=== PATIENT | female | born 1945 | race Two or more races ===

== ENCOUNTER 2018-03-07 10:45 | Inpatient (IN) ==
[2018-03-07] MEDS ORDERED: Metoprolol Tartrate 25 MG Tablet PO ONE (11:30)
[2018-03-07] MEDS ORDERED: Chlorhexidine Gluconate 2% 1 Pack (2 Cloths) TOPICAL ONE (11:30)
[2018-03-07] MEDS ORDERED: Sodium Chlor 0.9% Inj 500 ML IV.CONT ONE ×2 (11:30→12:45)
[2018-03-07] MEDS ORDERED: Sodium Chloride 0.9% 2 ML Flush PRN IV.FLUSH (11:32)
[2018-03-07] MEDS ORDERED: ceFAZolin 2 GM IV; once IV.SIG ONE (12:00)
[2018-03-07 12:03] LABS: Prothrombin Time 10.3 sec (9.8-11.6)
[2018-03-07] MEDS ORDERED: Ketamine Inj 50 MG/5 ML Syringe IV.PUSH ONE (12:08)
[2018-03-07] MEDS ORDERED: Albumin Human 5% Inj 500 ML IV.SIG ONE (12:10)
[2018-03-07] MEDS ORDERED: Famotidine PF Inj 20 MG/2 ML Vial ONE (12:30)
[2018-03-07] MEDS ORDERED: hydrALAZINE HCl Inj 20 MG/ML Vial IV.PUSH ONE (12:45)
[2018-03-07] MEDS ORDERED: Neostigmine Inj 5 MG/5 ML Syringe IV.PUSH ONE (12:45)
[2018-03-07] MEDS ORDERED: Lidocaine PF 1% Inj 5 ML Syringe OTHER ONE (12:45)
[2018-03-07] MEDS ORDERED: Glycopyrrolate Inj 1 MG/5 ML Syringe IV.PUSH ONE (12:45)
[2018-03-07] MEDS ORDERED: Esmolol Bolus Inj 100 MG/10 ML Vial IV.PUSH ONE (12:45)
[2018-03-07] MEDS ORDERED: Morphine Inj 4 MG/ML Vial IV.PUSH PRN (15:51)
[2018-03-07] MEDS ORDERED: Sodium Chlor 0.9% Inj 1,000 ML IV.SIG SCH (16:00)
[2018-03-07] MEDS ORDERED: Sugammadex Inj 200 MG/2 ML Vial IV.PUSH ONE (16:29)
[2018-03-07] MEDS ORDERED: fentaNYL Citrate Inj 100 MCG/2 ML Ampul ONE ×2 (17:00→17:01)
--- NOTE | 2018-03-07 17:14 | XR ---
EXAM DATE: 03/07/2018 12:00 AM EDT AGE/SEX: 72 years / Female INDICATIONS: Right central line placement. CLINICAL DATA: This is the patient's initial encounter. Patient reports that signs and symptoms have been present for 1 day and indicates a pain score of Nonresponsive. MEDICAL/SURGICAL HISTORY: None. None. COMPARISON: No prior exams available for comparison. FINDINGS: A right jugular line is noted in the distal tip overlies expected location of the SVC. I do not see a pneumothorax, however there is extensive subcutaneous air overlying the left chest nec k. Mild cardiomegaly. CONCLUSION: Right jugular line as above. Extensive subcutaneous air. Electronically signed by: Wallace Schmidt MD 03/07/2018 5:13 PM EDT
[2018-03-07] MEDS ORDERED: Sodium Chlor 0.9% Inj 250 ML IV.SIG ONE (17:15)
[2018-03-07 17:34] LABS: Calcium 7.8 mg/dL (8.5-10.1); Potassium 3.6 meq/L (3.5-5.1)
[2018-03-07 17:41] LABS: Baso % (Auto) 0.4 % (0.0-2.0); Eos % (Auto) 0.1 % (0.0-4.0); Hematocrit 36.2 % (35.0-46.0); Hemoglobin 11.7 gm/dL (11.6-15.3); Lymph # (Auto) 0.8 th/mm3 (1.0-4.8); Lymph % (Auto) 7.8 % (9.0-44.0); Mean Corpuscular HGB Conc 32.3 % (32.0-36.0); Mean Corpuscular Hemoglobin 28.2 pg (27.0-34.0); Mean Corpuscular Volume 87.2 fL (80.0-100.0); Mean Platelet Volume 8.2 fL (7.0-11.0); Mono # (Auto) 0.2 th/mm3 (0.0-0.9); Mono % (Auto) 2.5 % (0.0-8.0); Neut # (Auto) 8.7 th/mm3 (1.8-7.7); Neut % (Auto) 89.2 % (16.0-70.0); Platelet Count 231 th/mm3 (150-450); Red Blood Count 4.15 mil/mm3 (4.00-5.30); Red Cell Distribution Width 15.2 % (11.6-17.2); White Blood Count 9.8 th/mm3 (4.0-11.0)
--- NOTE | 2018-03-07 17:41 | MP ---
cc: Wolfgang Bauer MD DATE OF OPERATION: 03/07/2018 PREOPERATIVE DIAGNOSES: 1. A 4 cm enlarging lower pole left renal mass. 2. Diabetes. 3. Hypertension. POSTOPERATIVE DIAGNOSES: 1. A 4 cm enlarging lower pole left renal mass. 2. Diabetes. 3. Hypertension. PROCEDURE PERFORMED: Robotic-assisted laparoscopic left radical nephrectomy with intraoperative ultrasound. SURGEON: Wolfgang Bauer MD ANESTHESIA: General. COMPLICATIONS: None. PREOPERATIVE ANTIBIOTICS: Ancef 1 g IV. DRAINS: Khalil catheter. SPECIMENS: Left kidney. ESTIMATED BLOOD LOSS: 200 mL. FLUIDS: 1700 mL crystalloids per Anesthesia. COMPLICATIONS: None. DISPOSITION: Stable to recovery. INDICATIONS: The patient is a 72-year-old female who had a known lower pole left renal mass for the last several years. However, over last couple of years, it has doubled in size. She also had issues with urination in which she has milky colored urine that was very thick. She is under the care of a rod welder who is recommending a biopsy of her kidney. However, due to the finding of this enlarging renal mass, she was set up for surgical removal of the mass and possible removal of the kidney due to location of the mass. After risks, benefits, and alternatives were explained to the patient, the patient elected to proceed. Informed consent was obtained. DETAILS OF PROCEDURE: The patient was properly identified and brought back to the operating room and laid supine on the operating table. Appropriate timeout was performed. Under the direction of Anesthesiology, the patient was intubated and induced under general anesthetic. Appropriate preoperative antibiotics were given within one hour of start of procedure. A Khalil catheter was placed under sterile technique. She was then placed in right lateral decubitus position with left side up. All pressure points were padded. She was then prepped and draped in a sterile surgical fashion. A stab incision was made superior and lateral to the umbilicus. A Veress needle was then used to gain access to the abdominal cavity. Pneumoperitoneum was then achieved. I extended the incision approximately 2 cm, and a long camera was then placed under direct vision into the abdominal cavity. There was no intra-abdominal injury. At this time 4 remaining ports were then placed, under direct visualization, including two 8 mm robotic ports that were triangulated off of the camera port and then two 12 mm bilingual teacher assistant port in the midline superior and inferior to the umbilicus. Once all ports were placed, the robot was then brought into position. We began by taking down the white line of Toldt and reflecting the colon medially which exposed the retroperitoneum. Carefully with blunt dissection, I was able to dissect the kidney off of the colonic mesentery. At this time, I then easily found the gonadal vein and ureter. I developed a plane between the gonadal vein and ureter and the psoas muscle and retracted the kidney anteriorly. I carefully marched cranially up the psoas muscle, following the gonadal vein insertion into the left renal vein. Due to exposure purposes, I then needed to take the gonadal vein with the robotic vessel sealer. The patient also had a small lumbar vein posterior to the renal vein. This was carefully dissected out and taken with a robotic sealer as well. Both the artery and vein were carefully dissected out separately and circumferentially. At this point, I then turned my attention to finding the tumor in the anterior portion of the left kidney. The perirenal fat was then carefully dissected off. This exposed the exophytic tumor. As I came around the inferior portion of the tumor, it appeared to be continuous with the ureter. There did not seem to see a viable plane, which could explain her urinary issues. Ultrasound was then brought into the field. Intraoperative ultrasound was done, which showed the mass appeared to be solid in nature, consistent with MRI findings and a possible renal cell carcinoma. The ultrasound was then removed. Superiorly and laterally we had a clear margin; however, medially and especially inferiorly that there was not a clear cut margin, especially with what appeared to be the ureter going through the tumor. At this point, we made the decision to perform a radical nephrectomy. In mobilizing the kidney did appear to puncture this renal mass and this proteinaceous, almost sebaceous, material was expressed, possible cystic renal cell carcinoma versus a hemorrhagic proteinaceous cyst that was in connection with her collecting system. At this point, I continued with the dissection, I was able to divide and ligate the renal artery with endovascular STEVAN stapler, followed by the vein. This appeared to free up the kidney as I was taking the upper pole attachments, I came across a separate vein and artery. These were small enough to be taken with the vessel sealer. The rest of the kidney was mobilized, the ureter was then divided inferiorly with the robotic vessel sealer. At this point, the entire kidney was freed. It was then placed in an EndoCatch bag for later removal. The renal fossa was then carefully inspected. It was irrigated out. No active bleeding was seen. The abdominal pressure was brought down to 7 mmHg. Again, hemostasis was excellent, and 5 mL of Evicel was then used for hemostatic purposes along the renal fossa and hilum. At this point, the kidney was extracted through a left lower quadrant incision. It was closed in 1 layer with a running 1-0 PDS. A second look was then performed. The underside of the incision was free of any bowel. There was no evidence of any pooling of blood in the renal fossa. All ports were removed under direct visualization. Incisions were closed with 4-0 Monocryl and reinforced with Dermabond. Sponge, instrument and needle counts were correct at the end of the case. This concluded the operation. She was extubated and sent to recovery room in stable condition. She will be transferred for routine postoperative care. We will have medicine help with her postoperative management. MD RACHID Casey/wendi , 04:03 PM , 04:18 PM
[2018-03-07] MEDS ORDERED: *morphine SULFATE 4 MG/ML PERIprocedure ONLY ONE (17:48)
[2018-03-07] MEDS: Pantoprazole Inj 40 MG Vial IV.PUSH SCH (18:33)
[2018-03-07] MEDS: Sodium Chloride 0.9% 2 ML Flush BID IV.FLUSH SCH (21:51)
[2018-03-07] MEDS: Docusate Sodium 100 MG Capsule PO SCH (21:51)
[2018-03-07] MEDS: Isosorbide Mononitrate 30 MG ER 24HR Tablet (Imdur) PO SCH (21:53)
[2018-03-08] MEDS: Levothyroxine 50 MCG Tablet PO SCH (05:01)
[2018-03-08 08:04] LABS: Hematocrit 33.6 % (35.0-46.0); Mean Corpuscular HGB Conc 32.8 % (32.0-36.0); Mean Corpuscular Hemoglobin 28.4 pg (27.0-34.0); Mean Corpuscular Volume 86.7 fL (80.0-100.0); Mean Platelet Volume 8.4 fL (7.0-11.0); Platelet Count 221 th/mm3 (150-450); Red Blood Count 3.88 mil/mm3 (4.00-5.30); Red Cell Distribution Width 14.8 % (11.6-17.2); White Blood Count 10.5 th/mm3 (4.0-11.0)
[2018-03-08 08:44] LABS: Calcium 7.6 mg/dL (8.5-10.1); Carbon Dioxide 26.2 meq/L (21.0-32.0); Potassium 4.3 meq/L (3.5-5.1)
[2018-03-08] MEDS: dilTIAZem CD 180 MG Capsule PO SCH (09:11)
[2018-03-08] MEDS: Docusate Sodium 100 MG Capsule PO SCH ×2 (09:12→20:50)
[2018-03-08] MEDS: Sodium Chloride 0.9% 2 ML Flush BID IV.FLUSH SCH ×2 (09:13→20:50)
--- NOTE | 2018-03-08 09:54 | P.CON ---
History of Present Illness Service: [facility]/HEP Consult date: 03/07/18 Requesting Physician: Wolfgang Bauer Reason for Consult: Medical multiple status post left robotic radical nephrectomy Primary Care Provider: No Primary Care Physician Family Provider: No Primary Care Physician Chief Complaint: "Growth in my kidney" History of Present Illness: 72-year-old female with past medical history significant for hypertension, hyperlipidemia,, GERD, and renal mass who was admitted to the hospital on 03/07 by . Patient reports that about a year ago she had a spot on the left kidney diagnosed in [place] where she was initially told was a stone. Patient followed this with her PCP and after developing symptoms of note: Urine was referred to a urologist and ostomy nurse for further evaluation. Patient reports that initially biopsies were recommended however she refused these as he was mentioned of possible removal of mass. She was admitted to the hospital for removal of renal mass with possible removal of left kidney due to size and location. [facility] consulted to assist with medical management during her hospitalization. Patient is seen and examined resting in bed comfortably appears to be in no acute distress. Denies any shortness of breath, cough, fevers, chills, nausea, vomiting, abdominal pain or discomfort. Khalil catheter was removed earlier today, patient has not yet voided. Patient denies any pain or discomfort at the moment. Would like to know results of biopsies. Discussed with patient that these may take several days to result. Review of Systems All other systems reviewed negative except as stated in HPI PMFSH - History History Provided By: Patient - Medical History Medical History: Medical History (Last Reviewed 03/08/18 @ 09:52 by Brad Garrett) COPD (chronic obstructive pulmonary disease) Diabetes GERD (gastroesophageal reflux disease) High cholesterol Hypertension Renal mass, left Thyroid disease - Surgical History Surgical History: Surgical History (Last Reviewed 03/08/18 @ 09:52 by Brad Garrett) H/O left breast biopsy Hx of cholecystectomy - Family History Family History: Family History (Last Updated 03/08/18 @ 09:53 by Brad Garrett) Father Breast CA Mother Stroke Sister Colon cancer - Tobacco History Second Hand Smoke Exposure: No Tobacco Use In Past 30 Days: No Smoking Status: Former smoker Tobacco Type: Cigarettes Years Smoked: 30 Smoking End Date: 9 years ago - Alcohol History How Often Do You Have a Drink Containing Alcohol: Never - Substance Use History Substance History: No History of Abuse - Travel History Recent Travel in the [place] Within the Last 8 Weeks: No Recent Travel Out of the Country Within the Last 8 Weeks: No Medications and Allergies Active Medications: Active Medications Atorvastatin Calcium (Lipitor) 20 mg PO [facility] Last Admin: 03/07/18 21:51 Dose: 20 mg Diltiazem HCl (Cardizem Cd 24hr) 180 mg PO DAILY [facility] Last Admin: 03/08/18 09:11 Dose: 180 mg Docusate Sodium (Colace) 100 mg PO BID [facility] Last Admin: 03/08/18 09:12 Dose: 100 mg Fluticasone Propionate (Flovent Hfa 110 Mcg Inh) 2 puff INH BID [facility] Last Admin: 03/08/18 09:13 Dose: Not Given Lactated Ringer's (Lr 1000 Ml Inj) 1,000 mls @ 30 mls/hr IV.CONT .Q24H ONE Stop: 03/08/18 11:29 Last Infusion: 03/07/18 15:51 Dose: Infused Sodium Chloride (Ns Inj) 1,000 mls @ 125 mls/hr IV.SIG .Q10H [facility] Last Infusion: 03/07/18 18:00 Dose: 125 mls/hr Isosorbide Mononitrate (Imdur) 30 mg PO [facility] Last Admin: 03/07/18 21:53 Dose: 30 mg Levothyroxine Sodium (Synthroid) 50 mcg PO DAILY@0600 [facility] Last Admin: 03/08/18 05:01 Dose: 50 mcg Losartan Potassium (Cozaar) 100 mg PO DAILY [facility] Last Admin: 03/08/18 09:11 Dose: 100 mg Metformin HCl (Glucophage) 500 mg PO BID [facility] Last Admin: 03/08/18 09:11 Dose: 500 mg Miscellaneous Information ([facility]) 1 each OTHER UNSCH PRN PRN Reason: SEE LABEL COMMENTS Stop: 03/08/18 16:37 Morphine Sulfate (Morphine Inj) 4 mg IV.PUSH Q4H PRN PRN Reason: BREAKTHROUGH PAIN Ondansetron HCl (Zofran Inj) 4 mg IV.PUSH Q6H PRN PRN Reason: NAUSEA OR VOMITING Oxycodone/Acetaminophen (Percocet 5/325 Mg) 2 tab PO Q4H PRN PRN Reason: PAIN SCALE 6 TO 10 Oxycodone/Acetaminophen (Percocet 5/325 Mg) 1 tab PO Q4H PRN PRN Reason: PAIN SCALE 3 TO 5 Pantoprazole Sodium (Protonix Inj) 40 mg IV.PUSH Q24H [facility] Last Admin: 03/07/18 18:33 Dose: 40 mg Sodium Chloride (Ns Flush) 2 ml IV.FLUSH BID [facility] Last Admin: 03/08/18 09:13 Dose: 2 ml Sodium Chloride (Ns Flush) 2 ml IV.FLUSH PRN PRN PRN Reason: FLUSH AFTER USING IV ACCESS Allergies Allergy/AdvReac Type Severity Reaction Status Date / Time No Known Allergies Allergy Verified 03/07/18 11:30 Home Medications Medication Instructions Recorded Confirmed Type atorvastatin 20 mg PO HS 03/06/18 03/07/18 History diltiazem HCl 180 mg PO DAILY 03/06/18 03/07/18 History fluticasone [Flovent HFA] 2 puff INHALATION BID 03/06/18 03/07/18 History isosorbide mononitrate 30 mg PO HS 03/06/18 03/07/18 History levothyroxine 50 mcg PO DAILY 03/06/18 03/07/18 History losartan 100 mg PO DAILY 03/06/18 03/07/18 History metformin 500 mg PO BID 03/06/18 03/07/18 History ranitidine HCl [Zantac Maximum 150 mg PO DAILY PRN 03/06/18 03/07/18 History Strength] Physical Exam Vital signs: Vital Signs 03/07/18 11:33 03/07/18 16:37 03/07/18 16:45 Temperature 97.8 F 97.5 F L Pulse Rate 88 78 74 Respiratory Rate 20 12 14 Blood Pressure 125/66 104/49 L 100/47 L Pulse Oximetry 96 100 100 03/07/18 17:00 03/07/18 17:15 03/07/18 17:30 Temperature Pulse Rate 73 72 70 Respiratory Rate 14 14 14 Blood Pressure 96/55 L 94/43 L 104/53 L Pulse Oximetry 96 98 94 L 03/07/18 17:45 03/07/18 18:00 03/07/18 20:00 Temperature 97 F L 97.2 F L Pulse Rate 73 68 72 Respiratory Rate 14 14 18 Blood Pressure 115/56 L 112/57 L 140/63 Pulse Oximetry 98 96 97 03/08/18 00:00 03/08/18 08:00 Temperature 97.0 F L 97.2 F L Pulse Rate 81 70 Respiratory Rate 18 17 Blood Pressure 130/56 L 115/54 L Pulse Oximetry 98 100 Intake & Output 03/07/18 03/08/18 03/08/18 18:59 06:59 18:59 Intake Total 2112 / 2112 100 / 100 100 / 100 Output Total 1100 / 1100 1500 / 1500 Balance 1012 / 1012 -1400 / -1400 100 / 100 Weight 75.9 kg 80 kg Intake: IV 1412 / 1412 100 / 100 100 / 100 LR 1000 mL Inj 1,000 ML @ 30 1000 / 1000 mls/hr IV.CONT .Q24H [facility] Rx#: [id number] NS Inj 250 ML @ 999 mls/hr IV. 250 / 250 SIG NOW [facility] Rx#:[id number] NS Inj 1,000 ML @ 125 mls/hr IV 112 / 112 .SIG .Q10H [facility] Rx#:[id number] Ancef 2 GM Premix Inj 2 gm In 50 / 50 50 ml @ 100 mls/hr IV.SIG ONCE [facility] Rx#:[id number] Ancef Inj 1,000 MG In NS Inj 100 / 100 100 / 100 100 ML @ 200 mls/hr IV.SIG Q8H [facility] Rx#:[id number] Oral 0 / 0 Anesthesia Amount 700 / 700 Output: Urine 1500 / 1500 Estimated Blood Loss 200 / 200 Urine Amount (Catheter) 900 / 900 Indwelling Urethral Catheter 900 / 900 Other: Weight On Admission 75.9 kg Narrative: GENERAL: Well-developed obese female resting in bed in no acute distress. SKIN: Warm and dry. HEAD: Atraumatic. Normocephalic. EYES: Pupils equal and round. No scleral icterus. No injection or drainage. ENT: No nasal bleeding or discharge. Mucous membranes pink and moist. NECK: Trachea midline. No JVD. Right jugular triple-lumen central line noted with dry and intact dressing. CARDIOVASCULAR: Regular rate and rhythm. RESPIRATORY: No accessory muscle use. Clear to auscultation. Breath sounds equal bilaterally. GASTROINTESTINAL: Abdomen soft, non-tender, nondistended. Positive bowel sounds. Left lower quadrant dressing with minimal amount of serous drainage noted. MUSCULOSKELETAL: Extremities without clubbing, cyanosis, or edema. No obvious deformities. NEUROLOGICAL: Awake and alert. No obvious cranial nerve deficits. Motor grossly within normal limits. Five out of 5 muscle strength in the arms and legs. Normal speech. PSYCHIATRIC: Appropriate mood and affect; insight and judgment normal. - Urinary Catheter Management Indwelling Urethral Catheter Cath placed during this visit: yes Reason for continuing: Hourly intake/output Insertion date: 03/07/18 Insertion time: 12:45 Assessment and Plan - Assessment (1) Left renal mass Code(s): N28.89 - Other specified disorders of kidney and ureter Status: Acute (2) HTN (hypertension) Code(s): I10 - Essential (primary) hypertension Status: Acute (3) Diabetes mellitus Code(s): E11.9 - Type 2 diabetes mellitus without complications Status: Acute - Plan 72-year-old female with past medical history significant for hypertension, hyperlipidemia, GERD, COPD and renal mass who was admitted to the hospital on by for removal of renal mass with possible left nephrectomy. [facility] consulted for medical management during her stay. Left renal mass - s/p Robotic-assisted laparoscopic left radical nephrectomy with intraoperative ultrasound by 03/07 -Khalil catheter discontinued early today, monitor urinary output -Pain control with oral Percocet and IV morphine for breakthrough pain -Vital signs stable, afebrile, H&H with slight drop 11.1/33.6 -Follow-up pathology report with surgeon or PCP Hypertension Hyperlipidemia -Continue Cardizem, Imdur, Cozaar, Lipitor -Monitor heart rate and blood pressure during stay, stable so far. Diabetes mellitus -Continue home dose of metformin -Currently on liquid diet advance as tolerated to diabetic - Random BS stable, if needed ISS DVT prophylaxis- [facility] [place] Thank you for this consultation, will continue to follow along with you. 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 (2) HTN (hypertension) Qualifiers: Hypertension type: essential hypertension Qualified Code(s): I10 - Essential (primary) hypertension
--- NOTE | 2018-03-08 12:29 | P.PNURO ---
Subjective Patient symptoms today: doing well. denies pain. tolerating clears. No flatus. Denies CP/SOB/N/V/F. Has been OOB. Khalil removed this morning. Objective Vital Signs: Vital Signs 03/07/18 16:37 03/07/18 16:45 03/07/18 17:00 Temperature 97.5 F L Pulse Rate 78 74 73 Respiratory Rate 12 14 14 Blood Pressure 104/49 L 100/47 L 96/55 L Pulse Oximetry 100 100 96 03/07/18 17:15 03/07/18 17:30 03/07/18 17:45 Temperature Pulse Rate 72 70 73 Respiratory Rate 14 14 14 Blood Pressure 94/43 L 104/53 L 115/56 L Pulse Oximetry 98 94 L 98 03/07/18 18:00 03/07/18 20:00 03/08/18 00:00 Temperature 97 F L 97.2 F L 97.0 F L Pulse Rate 68 72 81 Respiratory Rate 14 18 18 Blood Pressure 112/57 L 140/63 130/56 L Pulse Oximetry 96 97 98 03/08/18 08:00 Temperature 97.2 F L Pulse Rate 70 Respiratory Rate 17 Blood Pressure 115/54 L Pulse Oximetry 100 Intake & Output 03/07/18 03/08/18 03/08/18 18:59 06:59 18:59 Intake Total 2112 / 2112 100 / 100 100 / 100 Output Total 1100 / 1100 1500 / 1500 Balance 1012 / 1012 -1400 / -1400 100 / 100 Weight 75.9 kg 80 kg Intake: IV 1412 / 1412 100 / 100 100 / 100 LR 1000 mL Inj 1,000 ML @ 30 1000 / 1000 mls/hr IV.CONT .Q24H [facility] Rx#: [id number] NS Inj 250 ML @ 999 mls/hr IV. 250 / 250 SIG NOW ONE Rx#:[id number] NS Inj 1,000 ML @ 125 mls/hr IV 112 / 112 .SIG .Q10H [facility] Rx#:[id number] Ancef 2 GM Premix Inj 2 gm In 50 / 50 50 ml @ 100 mls/hr IV.SIG ONCE [facility] Rx#:[id number] Ancef Inj 1,000 MG In NS Inj 100 / 100 100 / 100 100 ML @ 200 mls/hr IV.SIG Q8H [facility] Rx#:[id number] Oral 0 / 0 Anesthesia Amount 700 / 700 Output: Urine 1500 / 1500 Estimated Blood Loss 200 / 200 Urine Amount (Catheter) 900 / 900 Indwelling Urethral Catheter 900 / 900 Other: Weight On Admission 75.9 kg Result Diagrams: 03/08/18 06:00 03/08/18 06:00 Imaging: Impressions Chest X-Ray 03/07/18 00:00 CONCLUSION: Right jugular line as above. Extensive subcutaneous air. Medications and IVs: Active Medications Generic Name Dose Route Start Last Admin Trade Name Freq PRN Reason Stop Dose Admin Atorvastatin Calcium 20 mg 03/07/18 21:00 03/07/18 21:51 Lipitor PO 20 mg HS [facility] Administration Diltiazem HCl 180 mg 03/08/18 09:00 03/08/18 09:11 Cardizem Cd 24hr PO 180 mg DAILY [facility] Administration Docusate Sodium 100 mg 03/07/18 21:00 03/08/18 09:12 Colace PO 100 mg BID [facility] Administration Fluticasone Propionate 2 puff 03/07/18 21:00 03/08/18 09:13 Flovent Hfa 110 Mcg Inh INH Not Given BID [facility] Sodium Chloride 1,000 mls @ 125 mls/hr 03/07/18 16:00 03/07/18 18:00 Ns Inj IV.SIG 125 mls/hr .Q10H [facility] Infusion Isosorbide Mononitrate 30 mg 03/07/18 21:00 03/07/18 21:53 Imdur PO 30 mg HS [facility] Administration Levothyroxine Sodium 50 mcg 03/08/18 06:00 03/08/18 05:01 Synthroid PO 50 mcg DAILY@0600 [facility] Administration Losartan Potassium 100 mg 03/08/18 09:00 03/08/18 09:11 Cozaar PO 100 mg DAILY [facility] Administration Metformin HCl 500 mg 03/07/18 21:00 03/08/18 09:11 Glucophage PO 500 mg BID [facility] Administration Miscellaneous Information 1 each 03/07/18 16:38 Misc Nursing Information OTHER 03/08/18 16:37 UNSCH PRN SEE LABEL COMMENTS Morphine Sulfate 4 mg 03/07/18 15:51 Morphine Inj IV.PUSH Q4H PRN BREAKTHROUGH PAIN Ondansetron HCl 4 mg 03/07/18 15:50 Zofran Inj IV.PUSH Q6H PRN NAUSEA OR VOMITING Oxycodone/Acetaminophen 2 tab 03/07/18 15:50 Percocet 5/325 Mg PO Q4H PRN PAIN SCALE 6 TO 10 Oxycodone/Acetaminophen 1 tab 03/07/18 15:52 Percocet 5/325 Mg PO Q4H PRN PAIN SCALE 3 TO 5 Pantoprazole Sodium 40 mg 03/07/18 17:00 03/07/18 18:33 Protonix Inj IV.PUSH 40 mg Q24H [facility] Administration Sodium Chloride 2 ml 03/07/18 21:00 03/08/18 09:13 Ns Flush IV.FLUSH 2 ml BID [facility] Administration Sodium Chloride 2 ml 03/07/18 11:32 Ns Flush IV.FLUSH PRN PRN FLUSH AFTER USING IV ACCESS Objective Remarks: NAD. A/O x 3 CTAB RRR abd soft, non tender, mild distention. Inc c/d/i. Dressing intact Ext NT. No edema Assessment and Plan - Plan POD #1 s/p Left Robotic Radical Nephrectomy -Doing well. Hemodynamically stable. Good UOP -Creatinine elevated as expected. Repeat BMP in A.M. -Ambulate, IS -GI/DVT prophylaxis -Medical Management per Hospitalist. Appreciate assistance. -Regular diet in A.M. -Possible d/c tomorrow
[2018-03-08] MEDS ORDERED: Sodium Chlor 0.9% Inj 1,000 ML IV.SIG SCH (13:00)
[2018-03-08] MEDS: Pantoprazole Inj 40 MG Vial IV.PUSH SCH (16:13)
[2018-03-08] MEDS: Isosorbide Mononitrate 30 MG ER 24HR Tablet (Imdur) PO SCH (20:49)
[2018-03-09] MEDS: Levothyroxine 50 MCG Tablet PO SCH (05:02)
[2018-03-09 08:08] LABS: Calcium 8.1 mg/dL (8.5-10.1); Carbon Dioxide 26.5 meq/L (21.0-32.0); Potassium 3.9 meq/L (3.5-5.1)
[2018-03-09] MEDS: Docusate Sodium 100 MG Capsule PO SCH (08:49)
[2018-03-09] MEDS: dilTIAZem CD 180 MG Capsule PO SCH (08:52)
--- NOTE | 2018-03-09 10:40 | P.PN ---
Subjective Interval history: Follow-up visit for robotic assisted laparoscopic nephrectomy. Comfortably in no acute distress. He denies any nausea, vomiting, cough, shortness of breath or chest pain. Patient reports that she tolerated her diet this morning. Had a bowel movement this morning and is voiding without any dysuria or hematuria. She reports she is ready to go home today. Denies any abdominal pain or discomfort. Physical Exam Vital signs: Vital Signs 03/08/18 12:00 03/08/18 16:00 03/08/18 19:37 Temperature 97.1 F L 97.3 F L 97.9 F Pulse Rate 64 72 77 Respiratory Rate 18 17 17 Blood Pressure 125/63 129/63 132/62 Pulse Oximetry 99 95 94 L 03/09/18 00:00 03/09/18 08:00 Temperature 97.2 F L 98.2 F Pulse Rate 79 85 Respiratory Rate 17 16 Blood Pressure 137/63 122/57 L Pulse Oximetry 94 L 91 L Intake & Output 03/08/18 03/09/18 03/09/18 18:59 06:59 18:59 Intake Total 3338 / 3338 900 / 900 Output Total 1550 / 1550 Balance 1788 / 1788 900 / 900 Weight 78.1 kg Intake: IV 988 / 988 NS Inj 1,000 ML @ 125 mls/hr IV 888 / 888 .SIG .Q10H [facility] Rx#:[id number] Ancef Inj 1,000 MG In NS Inj 100 / 100 100 ML @ 200 mls/hr IV.SIG Q8H [facility] Rx#:[id number] Oral 1650 / 1650 900 / 900 Anesthesia Amount 700 / 700 Output: Urine 1050 / 1050 Estimated Blood Loss 200 / 200 Urine Amount (Catheter) 300 / 300 Indwelling Urethral Catheter 300 / 300 Other: # Voids 3 Date of Last Bowel Movement 03/08/18 # Bowel Movements 1 Narrative: GENERAL: Well-developed obese female resting in bed in no acute distress. SKIN: Warm and dry. HEAD: Atraumatic. Normocephalic. EYES: Pupils equal and round. No scleral icterus. No injection or drainage. ENT: No nasal bleeding or discharge. Mucous membranes pink and moist. NECK: Trachea midline. Right jugular triple-lumen central line noted with dry and intact dressing. CARDIOVASCULAR: Regular rate and rhythm. RESPIRATORY: No accessory muscle use. Clear to auscultation. Breath sounds equal bilaterally. GASTROINTESTINAL: Abdomen soft, non-tender, nondistended. Positive bowel sounds. Left lower quadrant dressing with minimal amount of serous drainage noted. MUSCULOSKELETAL: Extremities without clubbing, cyanosis, or edema. No obvious deformities. NEUROLOGICAL: Awake and alert. No obvious cranial nerve deficits. Motor grossly within normal limits. Normal speech. PSYCHIATRIC: Appropriate mood and affect; insight and judgment normal. - Urinary Catheter Management Indwelling Urethral Catheter Cath placed during this visit: yes Reason for continuing: Hourly intake/output Insertion date: 03/07/18 Insertion time: 12:45 Results - Labs CBC & Chem 7: 03/08/18 06:00 03/09/18 05:33 Laboratory Results - last 24 hr 03/09/18 05:33 Sodium 147 H Potassium 3.9 Chloride 113 H Carbon Dioxide 26.5 Anion Gap 8 BUN 11 Creatinine 1.31 H Estimated GFR 40 L Random Glucose 84 Calcium 8.1 L Assessment and Plan - Assessment (1) Left renal mass Code(s): N28.89 - Other specified disorders of kidney and ureter Status: Acute (2) HTN (hypertension) Code(s): I10 - Essential (primary) hypertension Status: Acute (3) Diabetes mellitus Code(s): E11.9 - Type 2 diabetes mellitus without complications Status: Acute - Plan 72-year-old female with past medical history significant for hypertension, hyperlipidemia, GERD, COPD and renal mass who was admitted to the hospital on by for removal of renal mass with possible left nephrectomy. [facility] consulted for medical management during her stay. Left renal mass - s/p Robotic-assisted laparoscopic left radical nephrectomy with intraoperative ultrasound by 03/07 -Khalil catheter removed, voiding with no symptoms. -Pain control with oral Percocet and IV morphine for breakthrough pain -Vital signs stable, afebrile, H&H with slight drop 11.1/33.6 -Follow-up pathology report with surgeon or PCP -Creatinine mildly elevated at 1.31 Hypertension Hyperlipidemia -Continue Cardizem, Imdur, Cozaar, Lipitor -Monitor heart rate and blood pressure during stay, stable so far. Diabetes mellitus -Continue home dose of metformin -Currently on liquid diet advance as tolerated to diabetic - Random BS stable, if needed ISS DVT prophylaxis- SDC's Medically stable for discharge. Discussed Condition With: Patient and buttoner Planning: Possible DC today (2) HTN (hypertension) Qualifiers: Hypertension type: essential hypertension Qualified Code(s): I10 - Essential (primary) hypertension
[2018-03-09] MEDS: Sodium Chloride 0.9% 2 ML Flush BID IV.FLUSH SCH (10:43)
[2018-03-09 12:27] VITALS: BP 139/65; PULSE 86; RESP 17; TEMP 97.4; O2SAT 93
--- NOTE | 2018-03-09 13:32 | P.PNURO ---
Subjective Patient symptoms today: Pt was seen at bedside. Doing well. still has some soreness at the abd area. Ambulates with help. Tolerates diet well. Had BM. Voids ok. States that has difficulties to get out of her bed to stand up but states that its due to uncomfortable bed, she has no issues to get up from the chair Objective Vital Signs: Vital Signs 03/08/18 16:00 03/08/18 19:37 03/09/18 00:00 Temperature 97.3 F L 97.9 F 97.2 F L Pulse Rate 72 77 79 Respiratory Rate 17 17 17 Blood Pressure 129/63 132/62 137/63 Pulse Oximetry 95 94 L 94 L 03/09/18 08:00 03/09/18 12:00 Temperature 98.2 F 97.4 F L Pulse Rate 85 86 Respiratory Rate 16 17 Blood Pressure 122/57 L 139/65 Pulse Oximetry 91 L 93 L Intake & Output 03/08/18 03/09/18 03/09/18 18:59 06:59 18:59 Intake Total 3338 / 3338 900 / 900 Output Total 1550 / 1550 Balance 1788 / 1788 900 / 900 Weight 78.1 kg Intake: IV 988 / 988 NS Inj 1,000 ML @ 125 mls/hr IV 888 / 888 .SIG .Q10H [facility] Rx#:[id number] Ancef Inj 1,000 MG In NS Inj 100 / 100 100 ML @ 200 mls/hr IV.SIG Q8H [facility] Rx#:[id number] Oral 1650 / 1650 900 / 900 Anesthesia Amount 700 / 700 Output: Urine 1050 / 1050 Estimated Blood Loss 200 / 200 Urine Amount (Catheter) 300 / 300 Indwelling Urethral Catheter 300 / 300 Other: # Voids 3 Date of Last Bowel Movement 03/08/18 03/09/18 # Bowel Movements 1 Result Diagrams: 03/08/18 06:00 03/09/18 05:33 Medications and IVs: Active Medications Generic Name Dose Route Start Last Admin Trade Name Freq PRN Reason Stop Dose Admin Atorvastatin Calcium 20 mg 03/07/18 21:00 03/08/18 20:49 Lipitor PO 20 mg HS [facility] Administration Diltiazem HCl 180 mg 03/08/18 09:00 03/09/18 08:52 Cardizem Cd 24hr PO 180 mg DAILY [facility] Administration Docusate Sodium 100 mg 03/07/18 21:00 03/09/18 08:49 Colace PO Not Given BID [facility] Fluticasone Propionate 2 puff 03/07/18 21:00 03/09/18 10:43 Flovent Hfa 110 Mcg Inh INH 2 puff BID [facility] Administration Isosorbide Mononitrate 30 mg 03/07/18 21:00 03/08/18 20:49 Imdur PO 30 mg HS [facility] Administration Levothyroxine Sodium 50 mcg 03/08/18 06:00 03/09/18 05:02 Synthroid PO 50 mcg DAILY@0600 [facility] Administration Losartan Potassium 100 mg 03/08/18 09:00 03/09/18 08:52 Cozaar PO 100 mg DAILY [facility] Administration Metformin HCl 500 mg 03/07/18 21:00 03/09/18 08:51 Glucophage PO 500 mg BID [facility] Administration Morphine Sulfate 4 mg 03/07/18 15:51 Morphine Inj IV.PUSH Q4H PRN BREAKTHROUGH PAIN Ondansetron HCl 4 mg 03/07/18 15:50 Zofran Inj IV.PUSH Q6H PRN NAUSEA OR VOMITING Oxycodone/Acetaminophen 2 tab 03/07/18 15:50 Percocet 5/325 Mg PO Q4H PRN PAIN SCALE 6 TO 10 Oxycodone/Acetaminophen 1 tab 03/07/18 15:52 Percocet 5/325 Mg PO Q4H PRN PAIN SCALE 3 TO 5 Pantoprazole Sodium 40 mg 03/07/18 17:00 03/08/18 16:13 Protonix Inj IV.PUSH 40 mg Q24H [facility] Administration Sodium Chloride 2 ml 03/07/18 21:00 03/09/18 10:43 Ns Flush IV.FLUSH 2 ml BID [facility] Administration Sodium Chloride 2 ml 03/07/18 11:32 Ns Flush IV.FLUSH PRN PRN FLUSH AFTER USING IV ACCESS Objective Remarks: NAD. A/O x 3 CTAB RRR abd soft, non tender, mild distention. Inc c/d/i. Dressing intact Ext NT. No edema Assessment and Plan - Plan POD #2 s/p Left Robotic Radical Nephrectomy -Doing well. Hemodynamically stable. Good UOP -Creatinine elevated as expected. -Ambulates and tolerates diet well - Had BM -Medical Management per Hospitalist. Appreciate assistance. -Pt meets criteria for d/c today Discharge planning initiated Discussed Condition With: RN and Dr Bauer
== END 2018-03-09 15:05 | disposition home or self-care (01) ==
LOC: HSDC 10:45 → N07 15:48
PROVIDERS: ADMIT Urology; ATTEND Urology